=== PATIENT | female | born 1955 | race Caucasian/White ===

== ENCOUNTER 2016-03-12 12:09 | Outpatient (CLI) | payer BC | END 2016-03-12 12:10 | LOC: OUT 12:09 | PROVIDERS: ATTEND Colon & Rectal Surgery | DX: K43.2 Incisional hernia without obstruction or gangrene (principal) | CPT/HCPCS: 99213 ==

== ENCOUNTER 2017-08-16 11:22 | Outpatient (CLI) | payer BC ==
--- NOTE | 2017-08-18 18:49 | Diagnostic Imaging Report ---
MAX DURBIN [facility] [address] [facility] [address] [id number] Report Submission Date: Aug 17, 2017 4:36:41 PM CDT Patient Study Name: SHARONDA WEINBERG Date: Aug 16, 2017 11:25:50 AM CDT Modality Type: DX Gender: F Description: LOWER EXTREMITY : 53 Institution: [facility] Physician: MAX DURBIN Examination: Plain film left calcaneus History: CALCANIUS PAIN (Hx) Findings: 2 views of the left calcaneus demonstrates articular degenerative changes. No fracture or dislocation. Calcaneal spurs. No soft tissue swelling. No joint effusion. Impression: Calcaneal spurs. No fracture. Electronically signed on Aug 17, 2017 4:36:41 PM CDT by: Peewee BERRIOS
== END 2017-08-16 11:23 ==
LOC: RAD 11:22
PROVIDERS: ATTEND Family Medicine
DX: M79.672 Pain in left foot (principal)
CPT/HCPCS: 73630

== ENCOUNTER 2019-02-15 14:12 | Outpatient (CLI) | payer BC ==
[2019-02-15 15:25] LABS: TSH 5.22 mIU/l (0.465-4.685)
== END 2019-02-15 14:17 ==
LOC: LAB 14:12
PROVIDERS: ATTEND Family Medicine
DX: Z86.39 Personal history of other endocrine, nutritional and metabolic disease (principal)
CPT/HCPCS: 36415; 84439; 84443; 84481